=== PATIENT | male | born 1975 | race Caucasian/White ===

== ENCOUNTER 2017-10-04 13:58 | Outpatient (CLI) | payer BC | END 2017-10-04 19:36 | disposition home or self-care (01) | LOC: SUS 13:58 | PROVIDERS: ATTEND Internal Medicine | DX: N50.89 Other specified disorders of the male genital organs (principal) | CPT/HCPCS: 76870-TC ==

== ENCOUNTER 2017-10-23 13:37 | Outpatient (CLI) | payer BC ==
[2017-10-23] MEDS ORDERED: IOHEXOL 100 ML IV ONE (14:12)
== END 2017-10-23 20:52 | disposition home or self-care (01) ==
LOC: SCT 13:37
PROVIDERS: ATTEND Internal Medicine
DX: N43.2 Other hydrocele (principal)
CPT/HCPCS: 72193; Q9967